=== PATIENT | male | born 2005 | race Hispanic/Latino ===

== ENCOUNTER → 2024-04-23 | Outpatient (CLI) | payer OTHER ==
--- NOTE | 2024-04-23 10:27 | HMCIMG ---
US SCROTUM & CONTENTS HISTORY: Atrophy of testes COMPARISON: None TECHNIQUE: Duplex scrotal ultrasound study was performed. FINDINGS: The right testes measures 4.8 x 2.1 x 2.7 cm. The left testes measures 4.6 x 1.9 x 2.4 cm. No evidence of intratesticular mass or abnormal calcification is seen. There is right epididymal cysts measuring a millimeter. There is prominent left testicular vein measuring 6 mm. Normal flow is demonstrated in the testes and epididymides bilaterally. No hydroceles or varicocele is seen. IMPRESSION: 1. No evidence of intratesticular mass is seen. 2. Normal flow is demonstrated of both testes.
== END | disposition home or self-care (01) ==
LOC: RAH 09:01 → EEVIPCON 09:01
PROVIDERS: ATTEND Family Medicine
DX: N50.3 Cyst of epididymis (principal); N50.0 Atrophy of testis; N50.819 Testicular pain, unspecified
CPT/HCPCS: 76870